=== PATIENT | female | born 1975 | race Caucasian/White ===

== ENCOUNTER 2017-03-29 08:56 | Emergency (ER) | payer SELFPAY ==
[2017-03-29] MEDS ORDERED: NORMAL SALINE 1000 ML 1,000 ML IV ONE (09:09)
[2017-03-29 09:37] LABS: ABSOLUTE BASOPHILS # (AUTO) 0.1 10^3/uL (0.0-0.2); ABSOLUTE EOSINOPHILS # (AUTO) 0.1 10^3/uL (0.0-0.6); ABSOLUTE LYMPHOCYTES (AUTO) 1.5 10^3/uL (0.5-4.7); ABSOLUTE MONOCYTES (AUTO) 0.8 10^3/uL (0.1-1.4); ABSOLUTE NEUT (AUTO) 15.8 10^3/uL (1.7-8.2); BASOPHILS % (AUTO) 0.4 % (0-2); EOSINOPHILS % (AUTO) 0.4 % (0-6); HEMATOCRIT 48.3 % (36.0-47.0); HEMOGLOBIN 16.2 g/dL (12.0-15.5); LYMPHOCYTES % (AUTO) 8.1 % (13-45); MEAN CORPUSCULAR HEMOGLOBIN 30.5 pg (27.0-33.4); MEAN CORPUSCULAR HGB CONC 33.6 g/dL (32.0-36.0); MEAN CORPUSCULAR VOLUME 91 fl (80-97); MONOCYTES % (AUTO) 4.3 % (3-13); PLATELET COUNT 461 10^3/uL (150-450); RED BLOOD COUNT 5.33 10^6/uL (3.72-5.28); RED CELL DISTRIBUTION WIDTH 13.9 % (11.5-14.0); SEGMENTED NEUTROPHILS % (AUTO) 86.8 % (42-78); TOTAL CELLS COUNTED % (AUTO) 100 %; WHITE BLOOD COUNT 18.2 10^3/uL (4.0-10.5)
[2017-03-29 09:55] LABS: ALANINE AMINOTRANSFERASE 22 U/L (9-52); ALBUMIN 4.4 g/dL (3.5-5.0); ALKALINE PHOSPHATASE 76 U/L (38-126); ANION GAP 16 (5-19); ASPARTATE AMINO TRANSFERASE 20 U/L (14-36); BILIRUBIN,DIRECT 0.4 mg/dL (0.0-0.4); BILIRUBIN,TOTAL 0.8 mg/dL (0.2-1.3); BLOOD UREA NITROGEN 10 mg/dL (7-20); CALCIUM 9.7 mg/dL (8.4-10.2); CARBON DIOXIDE 23 mmol/L (22-30); CHLORIDE 105 mmol/L (98-107); CREATINE KINASE 50 U/L (30-135); GLUCOSE 178 mg/dL (75-110); POTASSIUM 3.6 mmol/L (3.6-5.0); SODIUM 144.2 mmol/L (137-145); TOTAL PROTEIN 7.1 g/dL (6.3-8.2)
[2017-03-29 10:06] LABS: CREATINE KINASE MB 0.34 ng/mL (<4.55)
[2017-03-29 10:07] LABS: TROPONIN I < 0.012 ng/mL
--- NOTE | 2017-03-29 14:39 | ER Document Report ---
ED General - General Chief Complaint: Allergic Reaction Stated Complaint: POSSIBLE ALLERGIC REACTION Time Seen by Provider: 03/29/17 09:08 TRAVEL OUTSIDE OF THE [place] IN LAST 30 DAYS: No - HPI Patient complains to provider of: Allergic reaction Notes: Patient coming in for evaluation allergic reaction. Patient was prescribed Augmentin for a sinus infection patient states took half tablet and broke out in a rash with difficulty breathing wheezing. Upon EMS arrival states diffuse wheezing and rhonchi therefore patient was given IM Benadryl IM Solu-Medrol and IM epinephrine. Patient was transported to the ER. Upon arrival EMS crew states patient's rash has improved breathing has also improved greatly. Patient is tachycardic will likely from the epinephrine. Patient denies any other allergies. Denies any recent travel denies any fever chills nausea vomiting diarrhea states that she was taking the medication because of pressure in her sinuses. - Related Data Allergies/Adverse Reactions: amoxicillin [From Augmentin] Allergy (Verified 03/29/17 11:58) Anaphylaxis clavulanic acid [From Augmentin] Allergy (Verified 03/29/17 11:58) Anaphylaxis Past Medical History - Social History Smoking Status: Unknown if Ever Smoked Family History: Reviewed & Not Pertinent Patient has suicidal ideation: No Patient has homicidal ideation: No Renal/ Medical History: Denies: Hx Peritoneal Dialysis Review of Systems - Review of Systems Constitutional: No symptoms reported EENT: Sinus pressure, Sinus discharge Cardiovascular: No symptoms reported Respiratory: No symptoms reported Gastrointestinal: No symptoms reported Genitourinary: No symptoms reported Female Genitourinary: No symptoms reported Musculoskeletal: No symptoms reported Skin: Rash Hematologic/Lymphatic: No symptoms reported Neurological/Psychological: No symptoms reported -: Yes All other systems reviewed and negative Physical Exam - Vital signs Vitals: Resp BP Pulse Ox 27 H 131/70 H 94 03/29/17 09:01 03/29/17 09:01 03/29/17 09:01 Interpretation: Normal - General General appearance: Appears well, Alert - HEENT Head: Normocephalic, Atraumatic Eyes: Normal Pupils: PERRL Neck: Other - No uvular edema noted posterior pharynx swelling. Elevation of tongue no swelling of the lips no facial swelling - Respiratory Respiratory status: No respiratory distress Chest status: Nontender Breath sounds: Wheezing Chest palpation: Normal - Cardiovascular Rhythm: Regular Heart sounds: Normal auscultation Murmur: No - Abdominal Inspection: Normal Distension: No distension Bowel sounds: Normal Tenderness: Nontender Organomegaly: No organomegaly - Back Back: Normal, Nontender - Extremities General upper extremity: Normal inspection, Nontender, Normal color, Normal ROM , Normal temperature General lower extremity: Normal inspection, Nontender, Normal color, Normal ROM , Normal temperature, Normal weight bearing. No: Kenan's sign - Neurological Neuro grossly intact: Yes Cognition: Normal Orientation: AAOx4 [place] Coma Scale Eye Opening: Spontaneous [place] Coma Scale Verbal: Oriented [place] Coma Scale Motor: Obeys Commands Rajesh Coma Scale Total: 15 Speech: Normal Motor strength normal: LUE, RUE, LLE, RLE Sensory: Normal - Psychological Associated symptoms: Normal affect, Normal mood - Skin Skin Temperature: Warm Skin Moisture: Dry Skin Color: Other - Erythematous rash with hives on the torso face and upper extremities no rash in lower extremities Course - Re-evaluation Re-evalutation: 03/29/17 15:40 Patient coming in for evaluation of allergic reaction. Patient was monitored here for approximately 6 hours the resolution of the rash and the repeat dosing of her medication. Patient will be discharged home on prednisone was given a dose present prior to discharge. Patient also given a prescription for EpiPen. Patient was educated on use of Benadryl at home. Patient is encouraged follow -up with PCP - Vital Signs Vital signs: Temp Pulse Resp BP Pulse Ox 98.2 F 95 17 111/57 L 95 03/29/17 09:15 03/29/17 15:05 03/29/17 15:05 03/29/17 15:05 03/29/17 15:05 - Laboratory Result Diagrams: 03/29/17 09:12 03/29/17 09:12 Laboratory results interpreted by me: 03/29/17 03/29/17 09:12 09:12 WBC 18.2 H RBC 5.33 H Hgb 16.2 H Hct 48.3 H Plt Count 461 H Seg Neutrophils % 86.8 H Lymphocytes % 8.1 L Absolute Neutrophils 15.8 H Est GFR ( Amer) 57 L Est GFR (Non-Af Amer) 47 L Glucose 178 H Discharge - Discharge Clinical Impression: Allergic reaction Qualifiers: Encounter type: initial encounter Qualified Code(s): T78.40XA - Allergy, unspecified, initial encounter Condition: Good Disposition: HOME, SELF-CARE Instructions: Acute Allergic Reaction to Drugs ([facility]), Use of Diphenhydramine Additional Instructions: Please do not take any more amoxicillin. Please carry the EpiPen with you at all times. Take steroids and medications as prescribed. I would also recommend for any rash to take 25-50 mg of Benadryl every 6 hours as needed. Return to the ER symptoms worsen. Prescriptions: Epinephrine [Epipen 2-Kvng] 0.3 mg IM ONCE PRN #2 vial PRN Reason: Prednisone [Deltasone] 60 mg PO DAILY #24 tablet Forms: Return to Work
[2017-03-29] MEDS ORDERED: PREDNISONE 20 MG TABLET PO ONE (14:50)
[2017-03-29 14:53] VITALS: BP 111/57
== END 2017-03-29 15:05 | disposition home or self-care (01) ==
LOC: ER 08:56
DX: T78.40XA Allergy, unspecified, initial encounter (principal); R21 Rash and other nonspecific skin eruption; R06.02 Shortness of breath; R06.2 Wheezing; R00.0 Tachycardia, unspecified
CPT/HCPCS: 99283; 96360; 96361; 36415; 82553; 82550; 85025; 80053; 84484; J7512; J7030

== ENCOUNTER 2018-07-18 16:47 | Emergency (ER) | payer BC ==
[2018-07-18] MEDS ORDERED: KETOROLAC TROMETHAMINE INJ/PF 30 MG/1 ML SDV IV ONE (19:05)
--- NOTE | 2018-07-18 19:06 | ER Document Report ---
ED Medical Screen (RME) - General Chief Complaint: Abdominal Pain Stated Complaint: ABDOMINAL PAIN Time Seen by Provider: 07/18/18 18:58 Mode of Arrival: Ambulatory Information source: Patient TRAVEL OUTSIDE OF THE [place] IN LAST 30 DAYS: No - HPI Patient complains to provider of: SARA PAIN Notes: 07/18/18 19:05 Patient here with complaints of right upper quadrant pain. Pain is been present for about a month now. Pain has been fairly constant every day. Nothing seems to make it better or worse. She said nausea, no vomiting. She states she has had some loose stools. Occasionally she has noticed some bright red blood on toilet paper after wiping. No dark blood. No fevers. No dysuria or hematuria. She has had C-sections, no other abdominal surgeries. Exam Nontoxic, no distress. Lungs clear and equal throughout. Heart sounds normal. Right upper quadrant tenderness on limited triage abdominal exam. Plan CBC, CMP, lipase, urine, urine , ultrasound of the right upper quadrant. Toradol. An initial examination was made on the patient as part of the triage process, and it was determined a more comprehensive evaluation was necessary. Initial labs were ordered and patient was transferred to another provider in the ED who assumed care and finished evaluation and plan. - Related Data Allergies/Adverse Reactions: amoxicillin [From Augmentin] Allergy (Verified 07/18/18 18:58) Anaphylaxis clavulanic acid [From Augmentin] Allergy (Verified 07/18/18 18:58) Anaphylaxis Past Medical History - Social History Frequency of alcohol use: None Drug Abuse: None Renal/ Medical History: Denies: Hx Peritoneal Dialysis Past Surgical History: Reports: Hx Section Physical Exam - Vital signs Vitals: Temp Pulse Resp BP Pulse Ox 98.7 F 107 H 16 138/73 H 97 07/18/18 16:53 07/18/18 16:53 07/18/18 16:53 07/18/18 16:53 07/18/18 16:53 Course - Vital Signs Vital signs: Temp Pulse Resp BP Pulse Ox 98.7 F 107 H 16 138/73 H 97 07/18/18 16:53 07/18/18 16:53 07/18/18 16:53 07/18/18 16:53 07/18/18 16:53
[2018-07-18 19:47] LABS: APPEARANCE,URINE SLIGHTLY-CLOUDY; BILIRUBIN,URINE NEGATIVE (NEGATIVE); COLOR,URINE YELLOW; GLUCOSE, URINE NEGATIVE (NEGATIVE); KETONES,URINE NEGATIVE (NEGATIVE); LEUKOCYTE ESTERASE,URINE NEGATIVE (NEGATIVE); NITRITE,URINE NEGATIVE (NEGATIVE); PROTEIN,URINE NEGATIVE (NEGATIVE); URINE SPECIFIC GRAVITY 1.023; UROBILINOGEN,URINE NEGATIVE mg/dL (<2.0)
[2018-07-18 19:48] LABS: ABSOLUTE BASOPHILS # (AUTO) 0.1 10^3/uL (0.0-0.2); ABSOLUTE EOSINOPHILS # (AUTO) 0.1 10^3/uL (0.0-0.6); ABSOLUTE LYMPHOCYTES (AUTO) 1.1 10^3/uL (0.5-4.7); ABSOLUTE MONOCYTES (AUTO) 0.7 10^3/uL (0.1-1.4); BASOPHILS % (AUTO) 0.8 % (0-2); HEMATOCRIT 40.4 % (36.0-47.0); LYMPHOCYTES % (AUTO) 15.8 % (13-45); MEAN CORPUSCULAR HEMOGLOBIN 31.1 pg (27.0-33.4); MEAN CORPUSCULAR HGB CONC 34.6 g/dL (32.0-36.0); MEAN CORPUSCULAR VOLUME 90 fl (80-97); MONOCYTES % (AUTO) 9.6 % (3-13); PLATELET COUNT 268 10^3/uL (150-450); RED CELL DISTRIBUTION WIDTH 13.6 % (11.5-14.0); SEGMENTED NEUTROPHILS % (AUTO) 71.8 % (42-78); TOTAL CELLS COUNTED % (AUTO) 100 %; WHITE BLOOD COUNT 6.9 10^3/uL (4.0-10.5)
[2018-07-18 20:06] LABS: ALANINE AMINOTRANSFERASE 24 U/L (9-52); ALBUMIN 4.4 g/dL (3.5-5.0); ALKALINE PHOSPHATASE 57 U/L (38-126); ANION GAP 8 (5-19); ASPARTATE AMINO TRANSFERASE 19 U/L (14-36); BILIRUBIN,DIRECT 0.3 mg/dL (0.0-0.4); BILIRUBIN,TOTAL 0.8 mg/dL (0.2-1.3); BLOOD UREA NITROGEN 9 mg/dL (7-20); CARBON DIOXIDE 27 mmol/L (22-30); CHLORIDE 104 mmol/L (98-107); GLUCOSE 88 mg/dL (75-110); LIPASE 62.2 U/L (23-300); POTASSIUM 3.8 mmol/L (3.6-5.0); SODIUM 139.4 mmol/L (137-145); TOTAL PROTEIN 7.1 g/dL (6.3-8.2)
--- NOTE | 2018-07-18 22:11 | RADIOLOGY REPORT (SQ) ---
US ABDOMEN LIMITED HISTORY: Right upper quadrant pain. COMPARISON: None. TECHNIQUE: Grayscale and color Doppler imaging of the right upper quadrant was performed. FINDINGS: The liver has normal echotexture without focal lesion identified. The main portal vein has normal hepatopetal flow. No shadowing gallstones are seen. No pericholecystic fluid or gallbladder wall thickening. The common bile duct is normal caliber. The pancreas is not well-visualized due to overlying bowel gas. No hydronephrosis or shadowing renal stones are identified. The right kidney is normal in size. The visualized portions of the IVC and aorta are patent. IMPRESSION: No evidence of acute abdominal findings.
[2018-07-18] MEDS ORDERED: HYOSCYAMINE SULFATE 0.125 MG TABLET PO ONE (23:28)
--- NOTE | 2018-07-18 23:33 | ER Document Report ---
ED General - General Chief Complaint: Abdominal Pain Stated Complaint: ABDOMINAL PAIN Time Seen by Provider: 07/18/18 18:58 Mode of Arrival: Ambulatory Notes: Patient is a 42-year-old female without chronic medical problems, does not take any daily medications, no prior abdominal surgical history who presents with nakul roximately 4-6 weeks of generalized abdominal discomfort with associated nausea. States that the pain is all day every day. Describes it as a mild to moderate cramping, aching, generalized abdominal discomfort without localization. She states that food does not seem to worsen the pain, nothing seems to improve the pain either. She has had nausea but no vomiting. States that she has had some loose stools occasionally with blood mixed in them. She has not seen her primary care physician regarding today's concerns. She denies any known history of inflammatory bowel disease. Did have a colonoscopy roughly 20 years ago for similar circumstances. She denies fever, chest pain, shortness of breath, syncope. Does report that she has had some mild weight loss over the past 6 weeks. TRAVEL OUTSIDE OF THE [place] IN LAST 30 DAYS: No - Related Data Allergies/Adverse Reactions: amoxicillin [From Augmentin] Allergy (Verified 07/18/18 18:58) Anaphylaxis clavulanic acid [From Augmentin] Allergy (Verified 07/18/18 18:58) Anaphylaxis Past Medical History - General Information source: Patient - Social History Smoking Status: Never Smoker Frequency of alcohol use: None Drug Abuse: None Lives with: Alone Family History: Reviewed & Not Pertinent Patient has suicidal ideation: No Patient has homicidal ideation: No Renal/ Medical History: Denies: Hx Peritoneal Dialysis Past Surgical History: Reports: Hx Section Review of Systems - Review of Systems Notes: Constitutional: Negative for fever. HENT: Negative for sore throat. Eyes: Negative for visual changes. Cardiovascular: Negative for chest pain. Respiratory: Negative for shortness of breath. Gastrointestinal: Positive for abdominal cramping, nausea Genitourinary: Negative for dysuria. Musculoskeletal: Negative for back pain. Skin: Negative for rash. Neurological: Negative for headaches, weakness or numbness. 10 point ROS negative except as marked above and in HPI. Physical Exam - Vital signs Vitals: Temp Pulse Resp BP Pulse Ox 98.7 F 107 H 16 138/73 H 97 07/18/18 16:53 07/18/18 16:53 07/18/18 16:53 07/18/18 16:53 07/18/18 16:53 Interpretation: Tachycardic Notes: PHYSICAL EXAMINATION: GENERAL: Well-appearing, well-nourished and in no acute distress. HEAD: Atraumatic, normocephalic. EYES: Pupils equal round and reactive to light, extraocular movements intact, sclera anicteric, conjunctiva are normal. ENT: nares patent, oropharynx clear without exudates. Moist mucous membranes. NECK: Normal range of motion, supple without lymphadenopathy LUNGS: Breath sounds clear to auscultation bilaterally and equal. No wheezes rales or rhonchi. HEART: Regular rate and rhythm without murmurs ABDOMEN: Soft, nontender, normoactive bowel sounds. No guarding, no rebound. No masses appreciated. EXTREMITIES: Normal range of motion, no pitting or edema. No cyanosis. NEUROLOGICAL: No focal neurological deficits. Moves all extremities spontaneously and on command. PSYCH: Normal mood, normal affect. SKIN: Warm, Dry, normal turgor, no rashes or lesions noted. Course - Re-evaluation Re-evalutation: 07/18/18 23:31 Patient presents with 2 weeks of intermittent generalized abdominal discomfort of unclear etiology. I do believe that the patient requires a colonoscopy as I do have concern for an inflammatory bowel disease versus irritable bowel syndrome presentation. Patient has no focal abdominal tenderness on examination. Right upper quadrant ultrasound does not demonstrate any evidence of acute cholecystitis or cholelithiasis. Lipase is normal. No LFT changes. Based on history and exam, I do not suspect ACS, pulmonary embolus, SBO, mesente damian ischemia, acute pancreatitis, biliary pathology, or an abdominal aortic dissection. I do not believe CT imaging of the abdomen and pelvis is indicated at this time as I do not suspicion for the above diagnoses and believe that the most appropriate diagnostic exam at this point would be direct visualization through the scope. At this time will discharge with return precautions and follow-up recommendations. Verbal discharge instructions given a the bedside and opportunity for questions given. Medication warnings reviewed. Patient is in agreement with this plan and has verbalized understanding of return precautions and the need for primary care follow-up in the next 24-72 hours. - Vital Signs Vital signs: Temp Pulse Resp BP Pulse Ox 98.7 F 107 H 16 138/73 H 97 07/18/18 16:53 07/18/18 16:53 07/18/18 16:53 07/18/18 16:53 07/18/18 16:53 - Laboratory Result Diagrams: 07/18/18 19:28 07/18/18 19:28 Laboratory results interpreted by me: 07/18/18 07/18/18 19:28 19:28 Est GFR (Non-Af Amer) 58 L Urine Blood SMALL H - Diagnostic Test Radiology reviewed: Reports reviewed Discharge - Discharge Clinical Impression: Generalized abdominal pain, Nausea Condition: Good Disposition: HOME, SELF-CARE Additional Instructions: You have been seen in the Emergency Department (ED) for abdominal pain. Your evaluation did not identify a clear cause of your symptoms but was generally reassuring. Please follow up with your doctor as soon as possible regarding today's emergent visit and the symptoms that are bothering you. I strongly encourage you to follow-up with a GI physician for colonoscopy and endoscopy. Return to the ED if your abdominal pain worsens or fails to improve, you develop bloody vomiting, bloody diarrhea, you are unable to tolerate fluids due to vomiting, fever greater than 101, or other symptoms that concern you. Prescriptions: Hyoscyamine Sulfate [Levsin 0.125 Tablet] 0.125 mg PO TID PRN #30 tablet PRN Reason: Referrals: GAVIN DE GUZMAN MD [ACTIVE STAFF] - Follow up in 3-5 days
[2018-07-19] MEDS ORDERED: HYOSCYAMINE SULFATE 0.125 MG TABLET ONE (00:01)
[2018-07-19 00:11] VITALS: BP 134/84
== END 2018-07-19 00:11 | disposition home or self-care (01) ==
LOC: ER 16:47
DX: R10.84 Generalized abdominal pain (principal); R11.0 Nausea; Z88.0 Allergy status to penicillin
CPT/HCPCS: 99284; 96374; 36415; 83690; 85025; 81025; 80053; 81001; 76705; J3490; J1885